=== PATIENT | female | born 1950 | race Caucasian/White ===

== ENCOUNTER 2016-09-14 03:38 | Inpatient (IN) ==
[2016-09-06 15:59] LABS: MANUAL DIFF NEEDED? NO; URINE MICRO REVIEW NEEDED? NO; URINE SOURCE CLEAN CATCH
--- NOTE | 2016-09-06 16:06 | EKG Report ---
Test Performed on : 09/06/2016 4:00:31 PM Test Reason : PAT Blood Pressure : / mmHG Vent. Rate : 059 BPM Atrial Rate : 059 BPM P-R Int : 134 ms QRS Dur : 092 ms QT Int : 430 ms P-R-T Axes : 001 026 023 degrees QTc Int : 425 ms Sinus bradycardia. Otherwise normal ECG When compared with ECG of 24-DEC-2014 09:41, No significant change was found Confirmed by Surendra MORENO, Rustam Montoya ([id number]) on 09/07/2016 5:55:41 PM
[2016-09-06 16:43] LABS: BASO% 0.9 % (0.0-0.8); EOS# 0.18 X1000 (0.0-0.7); EOS% 3.9 % (0.0-10.0); HEMATOCRIT 36.2 % (37.0-47.0); IMM GRAN# 0.02 X1000 (0.0-0.04); IMM GRAN% 0.4 % (0.0-0.5); LYMPH# 1.58 X1000 (1.2-3.4); LYMPH% 34.1 % (20.5-51.1); MCH 31.9 PG (27-31); MCHC 33.1 g/dL (33-37); MCV 96.3 FL (81-99); MONO# 0.68 X1000 (0.11-0.59); MONO% 14.7 % (1.7-9.3); MPV 9.7 FL (7.4-10.4); PLT 407 X1000 (130-400); RBC 3.76 XMIL (4.2-5.4)
[2016-09-06 16:44] LABS: BILIRUBIN URINE NEGATIVE (NEGATIVE); BLOOD URINE NEGATIVE (NEGATIVE); COLOR YELLOW; GLUCOSE URINE NEGATIVE (NEGATIVE); LEUKOCYTES URINE NEGATIVE (NEGATIVE); NITRITE URINE NEGATIVE (NEGATIVE); PH URINE 7.5; PROTEIN URINE NEGATIVE (NEGATIVE); SP GRAVITY URINE 1.009; TURBIDITY URINE CLEAR (CLEAR); UROBILINOGEN URINE NORMAL (NORMAL)
[2016-09-06 16:45] LABS: UR EPITHELIAL CELLS <10 /HPF (<10); URINE BACTERIA NEGATIVE /HPF; URINE RBC <10 /HPF (<10); URINE WBC <10 /HPF (<10)
[2016-09-06 17:30] LABS: INR 1.04
[2016-09-06 18:32] LABS: AGAP 12; BUN 18 mg/dL (8-22); CALCIUM 8.7 mg/dL (8.8-10.2); CHLORIDE 91 mmol/L (98-107); COSMO 265; POTASSIUM 4.1 mmol/L (3.5-5.1); SODIUM 132 mmol/L (136-145); TCO2 29 mmol/L (25-35)
[2016-09-14] MEDS ORDERED: OXYCODONE HCL PO PRN (06:50)
[2016-09-14] MEDS ORDERED: CATAPRES PO PRN (06:50)
[2016-09-14] MEDS ORDERED: ACETAMINOPHEN PO PRN (06:50)
[2016-09-14] MEDS ORDERED: PEPCID ONE (12:24)
[2016-09-14] MEDS ORDERED: COLACE ONE (12:24)
[2016-09-14] MEDS ORDERED: REGLAN ONE (12:24)
[2016-09-14] MEDS ORDERED: CELEBREX ONE (12:25)
[2016-09-14] MEDS ORDERED: LYRICA ONE (12:25)
[2016-09-14] MEDS ORDERED: KEFZOL 1 GM/D5W 1 GM/50 ML IVPB ONE ×2 (12:27→14:23)
[2016-09-14] MEDS: XANAX PO SCH ×4 (12:39→22:22)
[2016-09-14] MEDS ORDERED: TORADOL ONE (13:40)
[2016-09-14] MEDS ORDERED: DURAMORPH ONE (13:40)
[2016-09-14] MEDS ORDERED: VANCOMYCIN ONE (13:41)
[2016-09-14] MEDS ORDERED: EXPAREL 1.3% ONE (13:41)
[2016-09-14] MEDS ORDERED: MARCAINE 0.25% PF/EPI 1:200,000 ONE (13:41)
[2016-09-14] MEDS ORDERED: SODIUM CHLORIDE 0.9% ONE (13:41)
--- NOTE | 2016-09-14 14:29 | HISTORY AND PHYSICAL ---
CHIEF COMPLAINT: Right knee pain. HISTORY OF PRESENT ILLNESS: Mrs. Mooney is a 65-year-old white female, who has experienced progressive right knee pain for some time. She has a history of injury to the right knee resulting in a fractured patella. Recently, she underwent a right knee arthroscopy which confirmed radiographic findings of advanced degenerative joint disease. Her pain is with weightbearing activities and activity and she has a significant reduction in her ability to perform her normal daily activities despite conservative therapy. She will be admitted at this time for right total knee arthroplasty. PRIMARY CARE PROVIDER: Larry Stout MD PAST MEDICAL HISTORY: 1. Osteoarthritis. 2. Cerebrovascular disease. 3. Sleep apnea. 4. Chronic obstructive pulmonary disease. 5. Irritable bowel syndrome. 6. Bipolar disorder. 7. Depression. 8. Degenerative disk disease. 9. Hypothyroidism. 10. Dyslipidemia. 11. Gastroesophageal reflux disease. 12. Constipation. 13. Hypertension. PAST SURGICAL HISTORY: 1. Right knee arthroscopy. 2. Right total hip arthroplasty. 3. Lumbar disk fusion x3. 4. Cervical disk fusion x2. 5. Abdominoplasty. SOCIAL HISTORY: The patient is a remote smoker. She is . HOME MEDICATIONS: 1. Lovenox 40 mg subcu daily. 2. Aspirin 325 mg by mouth daily. 3. Lipitor 40 mg at bedtime. 4. Protonix 40 mg daily. 5. Synthroid 50 mcg daily. 6. Lamictal 200 mg by mouth twice daily 7. Iron supplement 65 mg daily. 8. Tegretol 200 mg by mouth twice daily. 9. Bumex 1 mg daily. 10. Alprazolam 1 mg by mouth 4 times a day. 11. Temazepam 30 mg at bedtime. 12. Seroquel XR 600 mg daily. 13. Pristiq ER 100 mg by mouth daily. 14. Carvedilol 12.5 mg twice daily. 15. Senna 8.6 mg by mouth daily. 16. Docusate sodium 50 mg daily. 17. Magnesium hydroxide 30 mL by mouth daily. 18. Lactulose 30 mm daily. 19. Catapres 0.1 mg by mouth as necessary. 20. Eliquis 5 mg by mouth twice daily. 21. MiraLAX 17 g by mouth daily. 22. Percocet 7.5/325, one tablet by mouth, taken as directed as needed. REVIEW OF SYSTEMS: HEENT: The patient has a history of cerebrovascular disease. She also has a history of sleep apnea requiring p.r.n. home oxygen. Cardiac: She is treated for hypertension. No history of coronary artery disease or valvular heart disease. Pulmonary: She is a remote smoker with chronic obstructive pulmonary disease. Gastrointestinal: She is treated for irritable bowel syndrome and gastroesophageal reflux disease. Denies recent weight loss or weight gain. Genitourinary: No kidney or bladder infection or dysfunction. 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 Musculoskeletal: She is here today for her osteoarthritic right knee. She also has a history of a right total hip arthroplasty. Other: She is treated for bipolar disorder, depression, hypothyroidism, and dyslipidemia. PHYSICAL EXAMINATION: GENERAL APPEARANCE: The patient is resting comfortably in bed. Her is at her bedside. She is articulate and able answer all questions. Her assists in history as necessary. HEENT: Head is normocephalic and atraumatic. Pupils are equal, round, and react to light. Nares are patent. Throat without exudate. NECK: Supple. HEART: Regular rate and rhythm. No murmurs, gallops, or rubs. LUNGS: Clear to auscultation bilaterally. ABDOMEN: Round. Bowel sounds are present. It is nontender. GENITOURINARY: Not examined. NEUROLOGICAL: Gross motor function is intact, as well as perception of soft touch. MUSCULOSKELETAL: Right knee; no deformity, edema, or ecchymosis is noted. She has well-healed prior surgical scars. She has good peripheral pulses. IMPRESSION: Degenerative joint disease of the right knee. PLAN: Right total knee arthroplasty. The risks and benefits of surgery were explained to the patient, including the risk of anesthesia, , bleeding, infection, damage to tendons, ligaments, nerves and blood vessels, the possibility of blood clots and other imponderables were discussed and she wishes to proceed with operative management at this time. Dictated by CLYDE Rushing for Kamran Stahl MD cc: CLYDE Rushing MD
[2016-09-14 15:02] LABS: URINE MICRO REVIEW NEEDED? NO; URINE SOURCE CATH
[2016-09-14 15:12] LABS: BILIRUBIN URINE NEGATIVE (NEGATIVE); BLOOD URINE NEGATIVE (NEGATIVE); COLOR YELLOW; GLUCOSE URINE NEGATIVE (NEGATIVE); LEUKOCYTES URINE NEGATIVE (NEGATIVE); NITRITE URINE NEGATIVE (NEGATIVE); PH URINE 6.5; PROTEIN URINE TRACE mg/dL (NEGATIVE); TURBIDITY URINE CLEAR (CLEAR); UROBILINOGEN URINE NORMAL (NORMAL)
[2016-09-14 15:14] LABS: UR EPITHELIAL CELLS <10 /HPF (<10); URINE BACTERIA NEGATIVE /HPF; URINE RBC <10 /HPF (<10); URINE WBC <10 /HPF (<10)
[2016-09-14] MEDS ORDERED: NS 1,000 ML IV SCH (17:00)
[2016-09-14] MEDS ORDERED: MORPHINE IV PRN (17:01)
[2016-09-14] MEDS: DILAUDID ONE ×2 (17:15→17:20)
[2016-09-14] MEDS ORDERED: ZOFRAN PO PRN (17:15)
[2016-09-14] MEDS ORDERED: FENTANYL ONE ×2 (17:17)
[2016-09-14] MEDS ORDERED: VERSED ONE (17:18)
[2016-09-14] MEDS ORDERED: NS 1,000 ML ONE (17:53)
[2016-09-14] MEDS: TYLENOL PO SCH ×2 (18:38→22:23)
[2016-09-14] MEDS: OXY IR PO PRN (18:46)
[2016-09-14] MEDS ORDERED: COREG PO SCH (21:00)
--- NOTE | 2016-09-14 21:05 | OPERATIVE NOTE ---
PROCEDURE DATE: 09/14/2016 PREOPERATIVE DIAGNOSIS: Degenerative arthritis, right knee. POSTOPERATIVE DIAGNOSIS: Degenerative arthritis, right knee. PROCEDURE: Right total knee arthroplasty. IMPLANTS: DePuy Attune size 6, narrow, posterior stabilized femur, a size 5 tibial base plate, a 5 mm rotating platform tibial insert, and a 38 mm medialized anatomic patella. SURGEON: Kamran Stahl MD. FIRST ASSISTANCE: CLYDE New SECOND CLINICAL ASSISTANT PROFESSOR: Umberto Hansen RN. ANESTHESIA: General. IV FLUIDS: 2400 mL lactated Ringer. ESTIMATED BLOOD LOSS: 75 mL. TOURNIQUET TIME: 97 minutes at 350 mmHg. COMPLICATIONS: None. INDICATION: The patient is a 65-year-old female with chronic history of worsening pain and discomfort of the right knee. X-rays revealed significant degenerative arthritis. The patient did undergo previous arthroscopy several months ago and continued with significant pain and discomfort. Pain was progressive. It continued to affect her activities of daily living. Recommendation to proceed with right total knee arthroplasty was offered. Risks and benefits of surgery were explained, including the risks of anesthesia, , bleeding, infection, failure to relieve pain, postop stiffness, nerve injury, blood clots, and other imponderables. All questions answered. Patient and family wished to proceed with surgery. DETAILS OF OPERATION: The patient was taken to the operating room and placed supinely on the operating table. Once adequate anesthesia was obtained, patient's right lower extremity was subsequently prepped and draped in usual sterile fashion. An Esmarch was used to exsanguinate the right lower extremity and the tourniquet was inflated to 350 mmHg. A standard anterior incision was made with the skin knife. Medial and lateral skin envelopes were developed. Standard medial parapatellar arthrotomy was then performed. Patella fat pad was excised. Retractors were then placed. Approximately 1 cm anterior to the PCL insertion, a starting reamer was passed. Intramedullary guide with a distal femoral cutting block was pinned in position. Distal femoral cut was then performed in standard fashion. A sizing block was measured, placed and measured size 6. Corresponding pins were placed. Anterior, posterior, and chamfer cuts were then made. Attention was then turned to the proximal tibia where further resection of the ACL and PCL was performed. Using the extramedullary guide, the proximal tibial cutting block was pinned in position. Had good alignment confirmed with the alignment sena. The proximal tibia was then resected in standard fashion. Medial and lateral meniscus was excised. A curved osteotome was used to remove the posterior osteophytes off the distal femur. A spacer block was placed and had good soft tissue balance in both flexion and extension. Attention then turned to the proximal tibia where a size 5 appeared to be correct size and this was pinned in position, followed by a central reamer and a fin punch. A box cutting guide was then pinned on the distal femur. A box cut was performed. A size 6 femoral component was then placed in position. Two lug holes were drilled. Trial tibial insert was then placed. The patella was everted and resected in standard fashion. A 38 appeared to be correct size. Corresponding holes were drilled. A size 38 mm medialized anatomic patella was then placed. Had good patellofemoral tracking. The patient was noted, however, to have some tightness in both flexion and extension. Therefore, the cutting block was placed back into position and dropped and further resection was performed once again of the proximal tibia and the tibial base plate was then placed and the fin punch once again and tibial insert was then placed and had good soft tissue balancing. The components were then removed. Copious irrigation was then performed with antibiotic pulsatile lavage while vancomycin was mixed with cement on the back table. Sequential cementing was then performed, first with the tibial tray and excess cement was removed with a Henderson, followed by the femoral component and excess cement was removed with a Henderson. A trial tibial insert was placed in full extension. Axial loading was maintained while cement cured. While cement was curing, Exparel was placed in the deep soft tissue, as well as the subcutaneous tissue. After cement cured, peripheral cement was removed with a small osteotome. The 5 mm rotating platform tibial insert appeared to be correct size. The trial components removed. Exparel was placed in deep posterior capsule. The wound was copiously irrigated once again and the 5 mm rotating platform tibial insert was then placed. Knee was then carried through range of motion, had good range of motion and good stability. A 1/8 Hemovac drain was placed and was not sewn in. #1 Vicryl was used to repair the arthrotomy, followed by 2-0 Vicryl to repair the subcutaneous tissue and skin juana. Adaptic, sterile 4 x 4, Webril, cryo unit, Genaro wrap were applied to the right lower extremity. Patient tolerated the procedure well. No complications. Transferred to recovery room in stable condition. cc: Kamran Stahl MD
[2016-09-14] MEDS: LAMICTAL PO SCH (22:22)
[2016-09-14] MEDS: KEFZOL 2 GM/D5W 2 GM/50 ML IVPB IV SCH (22:22)
[2016-09-14] MEDS: COLACE PO SCH (22:23)
[2016-09-14] MEDS: LIPITOR PO SCH (22:23)
[2016-09-14] MEDS: TEGRETOL PO SCH (22:24)
[2016-09-15] MEDS: RESTORIL PO SCH ×2 (00:28→22:19)
[2016-09-15] MEDS: TYLENOL PO SCH ×4 (04:29→22:28)
[2016-09-15] MEDS: KEFZOL 2 GM/D5W 2 GM/50 ML IVPB IV SCH (04:31)
[2016-09-15 05:44] LABS: HEMATOCRIT 30.4 % (37.0-47.0); HEMOGLOBIN 9.8 g/dL (12.0-16.0)
[2016-09-15 05:57] LABS: AGAP 9; BUN 8 mg/dL (8-22); CHLORIDE 98 mmol/L (98-107); COSMO 266; POTASSIUM 3.2 mmol/L (3.5-5.1); SODIUM 134 mmol/L (136-145); TCO2 27 mmol/L (25-35)
[2016-09-15] MEDS ORDERED: KLOR-CON PO ONE (06:00)
[2016-09-15] MEDS: PROTONIX PO SCH (06:10)
--- NOTE | 2016-09-15 07:43 | Diag Imaging Result Document ---
PROCEDURE NAME: KNEE 1-2 VIEWS-RIGHT - 09/14/2016 RIGHT KNEE, 2 VIEWS: FINDINGS: There has been total knee arthroplasty. There appears to be appropriate alignment. IMPRESSION: Postsurgical changes.
--- NOTE | 2016-09-15 08:38 | PROGRESS NOTE ---
DATE: 09/15/2016 SUBJECTIVE: The patient is a pleasant 65-year-old female who is 1 day status post right total knee arthroplasty. Patient is currently resting comfortably and has no significant complaints. OBJECTIVE: On physical exam, the patient's right lower extremity dressing is intact. Her calf is soft. She has active dorsiflexion and plantar flexion. She is grossly neurovascularly intact. Her hemoglobin is 9.8, hematocrit is 30.4. Potassium is at 3.2. IMPRESSION: 1. Postoperative day #1, status post right total knee arthroplasty. 2. Hypokalemia. PLAN: At this point, we will plan on discontinuing her drain and Swanson, as well as Hep-Locking her IV. We will also change her dressing. We will consult Manager Shift for discharge planning for inpatient rehabilitation. We will give the patient 40 mEq of potassium chloride. cc: Kamran Stahl MD
[2016-09-15] MEDS ORDERED: SEROQUEL XR PO SCH (09:00)
[2016-09-15] MEDS ORDERED: DECADRON IV ONE (09:00)
[2016-09-15] MEDS ORDERED: PATIENT'S OWN MED PO SCH (09:00)
[2016-09-15] MEDS: BUMEX PO SCH (09:36)
[2016-09-15] MEDS: TEGRETOL PO SCH ×2 (09:36→22:19)
[2016-09-15] MEDS: PRISTIQ ER PO SCH (09:36)
[2016-09-15] MEDS: LACTULOSE PO SCH (09:36)
[2016-09-15] MEDS: SYNTHROID PO SCH (09:37)
[2016-09-15] MEDS: SENOKOT PO SCH (09:37)
[2016-09-15] MEDS: FERROUS SULFATE PO SCH (09:37)
[2016-09-15] MEDS: LAMICTAL PO SCH ×2 (09:37→22:20)
[2016-09-15] MEDS: COZAAR PO SCH (09:38)
[2016-09-15] MEDS: PEPCID PO SCH (09:38)
[2016-09-15] MEDS: COLACE PO SCH ×3 (09:38→22:20)
[2016-09-15] MEDS: COREG PO SCH ×2 (09:38→22:23)
[2016-09-15] MEDS: PERIDEX MT SCH ×2 (09:38→22:20)
[2016-09-15] MEDS: MILK OF MAGNESIA PO SCH (09:38)
[2016-09-15] MEDS: MIRALAX PO SCH (09:39)
[2016-09-15] MEDS ORDERED: APRESOLINE ONE (09:41)
[2016-09-15] MEDS ORDERED: LABETALOL (DOSE) ONE (09:41)
[2016-09-15] MEDS ORDERED: LUBRIFRESH PM OPH OINTMENT ONE (09:41)
[2016-09-15] MEDS ORDERED: ZOFRAN ONE (09:41)
[2016-09-15] MEDS ORDERED: QUELICIN (DOSE) ONE (09:42)
[2016-09-15] MEDS ORDERED: XYLOCAINE-MPF 2% ONE (09:42)
[2016-09-15] MEDS ORDERED: OFIRMEV 1000 MG/ISOTONIC SOLN 1,000 MG/100 ML BOTTLE ONE (09:42)
[2016-09-15] MEDS ORDERED: PIGGYBACK SET 7393 ONE (09:42)
[2016-09-15] MEDS ORDERED: LR 2,000 ML ONE (09:42)
[2016-09-15] MEDS ORDERED: NEO-SYNEPHRINE ONE (09:42)
[2016-09-15] MEDS ORDERED: NITROGLYCERIN ONE (09:42)
[2016-09-15] MEDS ORDERED: NS 250 ML ONE (09:42)
[2016-09-15] MEDS: XANAX PO SCH ×4 (10:08→22:20)
[2016-09-15] MEDS: OXY IR PO PRN ×5 (10:08→23:43)
[2016-09-15] MEDS: LIPITOR PO SCH (22:19)
[2016-09-15] MEDS: PATIENT'S OWN MED PO SCH (22:20)
[2016-09-15] MEDS: ELIQUIS PO SCH (22:20)
[2016-09-16] MEDS: OXY IR PO PRN ×3 (03:22→21:48)
[2016-09-16 05:55] LABS: HEMATOCRIT 25.5 % (37.0-47.0); HEMOGLOBIN 8.2 g/dL (12.0-16.0)
[2016-09-16] MEDS: TYLENOL PO SCH ×3 (06:03→17:35)
[2016-09-16] MEDS: PROTONIX PO SCH (06:03)
[2016-09-16 06:15] LABS: AGAP 11; BUN 11 mg/dL (8-22); CALCIUM 8.1 mg/dL (8.8-10.2); CHLORIDE 99 mmol/L (98-107); COSMO 273; POTASSIUM 3.9 mmol/L (3.5-5.1); SODIUM 137 mmol/L (136-145); TCO2 27 mmol/L (25-35)
--- NOTE | 2016-09-16 09:23 | DISCHARGE SUMMARY ---
ADMISSION DATE: 09/14/2016 DISCHARGE DATE: 09/17/2016 ADMITTING DIAGNOSIS: Degenerative osteoarthritis of the right knee. DISCHARGE DIAGNOSES: 1. Degenerative osteoarthritis of the right knee, status post right total knee arthroplasty. 2. Acute blood loss anemia. BRIEF HISTORY: The patient is a pleasant, 65-year-old female with a chronic history of worsening pain and discomfort of the right knee. Her pain has progressed to affect her activities of daily living. X-rays revealed underlying osteoarthritis and she did undergo previous arthroscopy a few months ago and had continuous significant pain and discomfort, and recommendation to proceed with right total knee arthroplasty was offered. Risks of surgery were explained, including the risks of anesthesia, , bleeding, infection, failure to relieve pain, postoperative stiffness, nerve injury, blood clots and other imponderables. All questions answered. Patient and family wished to proceed with surgery. HOSPITAL COURSE AND TREATMENT: The patient admitted to the hospital and underwent right total knee arthroplasty. She tolerated the procedure well. She had her hemoglobin and hematocrit decreased to 8.2 and 25.5 by postoperative day #2, and she was asymptomatic. It was felt the patient would benefit from inpatient rehabilitation, and the patient and family were agreeable to this. Prior to discharge, the patient is afebrile, tolerating a regular diet. Wound looked good. There are no signs or symptoms of infection. Her pain was well controlled on p.o. medication, and she was progressing with physical therapy. DISCHARGE MEDICATIONS: 1. OxyIR 5 mg 1-2 p.o. q. 4 hours p.r.n. pain. 2. Eliquis 5 mg p.o. b.i.d. 3. For remaining medications, please see medication list. DISCHARGE INSTRUCTIONS: 1. The patient will be discharged to inpatient rehabilitation. 2. Consult physical therapy with full weightbearing and range of motion exercises per total knee protocol. 3. Discontinue juana in 11 days. 4. Follow up in the office in 3-4 weeks. cc: Kamran Stahl MD
--- NOTE | 2016-09-16 09:42 | PROGRESS NOTE ---
DATE: 09/16/2016 SUBJECTIVE: The patient is a pleasant 65-year-old female who is 2 days status post a right total knee arthroplasty. She is currently resting comfortably this morning. She has no significant pain. OBJECTIVE: On physical exam, the patient's right lower extremity does have some expected swelling. The wound looks good. There are no signs or symptoms of infection. Her calf is soft. She has active dorsiflexion and plantar flexion. LABORATORY DATA: Her hemoglobin is 8.2, hematocrit 25.5. Her potassium has normalized to 3.9. IMPRESSION: 1. Postoperative day number 2, status post right total knee arthroplasty. 2. Acute blood loss anemia, asymptomatic. 3. Hypokalemia, resolved. PLAN: At this point, I discussed the treatment options with the patient. At this time, community mental health social worker has been consulted for inpatient rehabilitation. She will continue progressing with physical therapy. cc: Kamran Stahl MD
[2016-09-16] MEDS: MILK OF MAGNESIA PO SCH (09:59)
[2016-09-16] MEDS: LACTULOSE PO SCH (09:59)
[2016-09-16] MEDS: PERIDEX MT SCH ×2 (09:59→21:47)
[2016-09-16] MEDS: ELIQUIS PO SCH ×2 (10:02→21:47)
[2016-09-16] MEDS: TEGRETOL PO SCH ×2 (10:02→21:47)
[2016-09-16] MEDS: PRISTIQ ER PO SCH (10:02)
[2016-09-16] MEDS: SYNTHROID PO SCH (10:03)
[2016-09-16] MEDS: MIRALAX PO SCH (10:03)
[2016-09-16] MEDS: COLACE PO SCH ×2 (10:03→12:08)
[2016-09-16] MEDS: PEPCID PO SCH (10:03)
[2016-09-16] MEDS: BUMEX PO SCH (10:03)
[2016-09-16] MEDS: FERROUS SULFATE PO SCH (10:04)
[2016-09-16] MEDS: LAMICTAL PO SCH ×2 (10:04→21:47)
[2016-09-16] MEDS: SENOKOT PO SCH (10:04)
[2016-09-16] MEDS: COZAAR PO SCH (12:07)
[2016-09-16] MEDS: COREG PO SCH ×2 (12:08→21:47)
[2016-09-16] MEDS: XANAX PO SCH ×3 (12:08→17:33)
[2016-09-16] MEDS: LIPITOR PO SCH (21:47)
[2016-09-16] MEDS: PATIENT'S OWN MED PO SCH (21:47)
[2016-09-17] MEDS: RESTORIL PO SCH (02:37)
[2016-09-17] MEDS: TYLENOL PO SCH ×3 (02:38→11:22)
[2016-09-17] MEDS: XANAX PO SCH ×2 (02:38→10:12)
[2016-09-17 05:46] LABS: HEMOGLOBIN 8.7 g/dL (12.0-16.0)
[2016-09-17] MEDS: MIRALAX PO SCH (09:59)
[2016-09-17] MEDS: PERIDEX MT SCH (10:00)
[2016-09-17] MEDS: BUMEX PO SCH (10:00)
[2016-09-17] MEDS: PROTONIX PO SCH (10:01)
[2016-09-17] MEDS: PRISTIQ ER PO SCH (10:02)
[2016-09-17] MEDS: COLACE PO SCH (10:02)
[2016-09-17] MEDS: COZAAR PO SCH (10:02)
[2016-09-17] MEDS: ELIQUIS PO SCH (10:03)
[2016-09-17] MEDS: FERROUS SULFATE PO SCH (10:03)
[2016-09-17] MEDS: PEPCID PO SCH (10:03)
[2016-09-17] MEDS: TEGRETOL PO SCH (10:03)
[2016-09-17] MEDS: SENOKOT PO SCH (10:03)
[2016-09-17] MEDS: LAMICTAL PO SCH (10:03)
[2016-09-17] MEDS: SYNTHROID PO SCH (10:04)
[2016-09-17] MEDS: COREG PO SCH (10:04)
[2016-09-17] MEDS: MILK OF MAGNESIA PO SCH (10:04)
[2016-09-17] MEDS: LACTULOSE PO SCH (10:04)
[2016-09-17 11:57] VITALS: BP 123/74
== END 2016-09-17 13:48 ==
LOC: SURHOLD 03:38 → 4N 16:36
PROVIDERS: ADMIT Orthopaedic Surgery Adult Reconstructive Orthopaedic Surgery; ATTEND Orthopaedic Surgery Adult Reconstructive Orthopaedic Surgery